=== PATIENT | female | born 1965 | race Caucasian/White ===

== ENCOUNTER 2018-09-03 16:11 | Emergency (ER) | payer SELFPAY ==
[~2018-09-03] VITALS: Ht 152.4 cm; Wt 48.0 kg
[2018-09-03 16:40] VITALS: BP 129/81
== END 2018-09-03 21:20 | disposition left against medical advice (07) ==
LOC: ER 16:11
DX: Z53.21 Procedure and treatment not carried out due to patient leaving prior to being seen by health care provider (principal)